=== PATIENT | male | born 1985 | race Hispanic/Latino ===

== ENCOUNTER 2024-06-04 12:13 | Emergency (ER) | payer OTHER, BC ==
[~2024-06-04] VITALS: Ht 152.4 cm; Wt 115.2 kg
[2024-06-04 12:28] VITALS: BP 153/97; PULSE 80; RESP 16; O2SAT 99
[2024-06-04] MEDS ORDERED: MORPHINE 2 MG SYG IVP ONE (12:30)
[2024-06-04] MEDS ORDERED: ONDANSETRON 4MG INJ IVP ONE (12:30)
[2024-06-04] MEDS ORDERED: 0.9%NACL 1000ML 1,000 ML IV ONE (12:30)
[2024-06-04 12:48] LABS: HEMATOCRIT 53.2 % (42-54); MEAN CORPUSCULAR HEMOGLOBIN 29.2 pg (27.0-33.0); MEAN CORPUSCULAR HGB CONC 33.8 g/dL (32.0-36.0); MEAN CORPUSCULAR VOLUME 86.2 fL (79-99); PLATELET COUNT (AUTO) 304 K/uL (130-400); RED BLOOD CELL COUNT(AUTO) 6.17 MIL/uL (4.50-6.20); RED CELL DISTRIBUTION WIDTH 13.3 % (11.0-15.5); WHITE BLOOD COUNT (AUTO) 7.3 K/uL (4.8-10.8)
[2024-06-04 13:01] LABS: APPEARANCE,URINE CLEAR (CLEAR); BILIRUBIN,URINE NEGATIVE (NEGATIVE); COLOR,URINE LIGHT-YELLOW (YELLOW); GLUCOSE, URINE (UA) 50 mg/dL (NEGATIVE); KETONES,URINE NEGATIVE (NEGATIVE); LEUKOCYTE ESTERASE ,URINE NEGATIVE Leu/uL (NEGATIVE); NITRATE,URINE NEGATIVE (NEGATIVE); OCCULT BLOOD,URINE NEGATIVE (NEGATIVE); PROTEIN,URINE 20 mg/dL (NEGATIVE); UROBILINOGEN,URINE 0.2 mg/dL (0.2-1.0)
[2024-06-04 13:06] LABS: CREATININE 1.2 mg/dL (0.5-1.3); POTASSIUM 3.7 mmol/L (3.5-5.1)
[2024-06-04 13:27] LABS: BASOPHILS % (MANUAL) 3 % (0-2); EOSINOPHILS % (MANUAL) 1 % (1-6); LYMPHOCYTES % (MANUAL) 29 % (22-44); MAN.DIFF COMMENT-IMPRESSION MANUAL DIFFERENTIAL; MONOCYTES % (MANUAL) 6 % (2-9); PLATELET MORPHOLOGY COMMENT ADEQUATE; SEGMENTED NEUTROPHILS % 61 % (40-70); TOTAL CELLS COUNTED 100
[2024-06-04 13:29] LABS: ADD UA MICROSCOPIC YES
[2024-06-04 13:41] LABS: MUCUS,URINE RARE LPF (None Seen); SQUAMOUS EPITHELIAL CELL,UR RARE /HPF (0-2)
== END 2024-06-04 14:14 | disposition left against medical advice (07) ==
LOC: EDH 12:13
DX: K40.90 Unilateral inguinal hernia, without obstruction or gangrene, not specified as recurrent (principal)
CPT/HCPCS: 36415; 80048; 81001; 85025; 87086; J2270; J2405; J7030